=== PATIENT | female | born 1985 | race Hispanic/Latino ===

== ENCOUNTER 2019-11-12 07:41 | Outpatient (CLI) | payer BC ==
--- NOTE | 2019-11-12 08:31 | ULT ---
EXAM: US Abdominal CLINICAL HISTORY: Abdominal pain. COMPARISON: None. FINDINGS: Pancreas: The head of the pancreas has a normal echotexture. The remainder the pancreas is obscured by bowel gas IVC: Visualized IVC has a normal caliber. Aorta: Visualized aorta has a normal caliber. Liver:Ill-defined hypoechoic focus in the right hepatic lobe measuring 5.4 x 2.5 x 5.3 cm. The remain clinton the liver has a normal echotexture. The contour of the hepatic margin is maintained. Right hepatic lobe measures 15.6 cm Gallbladder: Surgically absent De Leon's sign:Not applicable CBD: 0.5 cm common bile duct diameter Portal vein: Patent. Appropriate directional flow. Right kidney: Normal cortical echotexture. No hydronephrosis. Right kidney measuring 9.3 x 4.4 x 3.9 cm in length. Left kidney: Normal cortical echotexture. No hydronephrosis . Left kidney measuring 10.4 x 5.9 x 5.2 cm in length Spleen: Normal echotexture. 9.5 x 9.4 x 4.3 cm. IMPRESSION: 1. Ill-defined hypoechoic focus in the right hepatic lobe. Correlation made with a CT from 06/25/2018 demonstrates a hemangioma. Otherwise, unremarkable ultrasound
--- NOTE | 2019-11-12 08:56 | ULT ---
PELVIC ULTRASOUND: HISTORY: Irregular menstrual periods. FINDINGS: Real-time imaging of the pelvis was obtained transabdominally and with an endovaginal probe. This sh ows a uterus measuring 4.4 x 4.6 x 9.3 cm. Endometrium is 5 mm. No discrete fibroids are identified . Nabothian cysts are present. Right and left ovaries are normal in appearance. DOPPLER EVALUATION WITH SPECTRAL ANALYSIS: Normal flow is shown to both adnexa. IMPRESSION: Nabothian cyst; otherwise, unremarkable exam. POS: [facility]
== END 2019-11-12 07:42 | disposition home or self-care (01) ==
LOC: BICULT 07:41
PROVIDERS: ATTEND Family Medicine
DX: R10.84 Generalized abdominal pain (principal); N88.8 Other specified noninflammatory disorders of cervix uteri; D18.03 Hemangioma of intra-abdominal structures
CPT/HCPCS: 76856; 93975

== ENCOUNTER 2020-04-13 10:12 | Outpatient (CLI) | payer BC ==
--- NOTE | 2020-04-13 10:58 | RAD ---
Left foot 3 views HISTORY: Left foot pain. Arthritis. COMPARISON: 06/25/2018. FINDINGS: Lisfranc joint alignment is anatomic. Plantar arch is maintained. Plantar and small Shabbir s enthesophytes arise from the posterior aspect calcaneus. Mild joint space narrowing, osteophytosis, and subchondral sclerosis at the talonavicular joint. No acute fracture, dislocation, or aggressive osseous erosions. IMPRESSION : Mild osteoarthritic changes of the hindfoot. No acute osseous abnormalities are demonstrated. Plantar heel spur.
== END 2020-04-13 10:13 | disposition home or self-care (01) ==
LOC: BICRAD 10:12
PROVIDERS: ATTEND Family Medicine
DX: M19.072 Primary osteoarthritis, left ankle and foot (principal); M77.52 Other enthesopathy of left foot and ankle